=== PATIENT | female | born 1960 | race Caucasian/White ===

== ENCOUNTER 2024-07-11 23:38 | Emergency (ER) | payer MEDICARE, MEDICAID ==
[~2024-07-11] VITALS: Ht 165.1 cm; Wt 75.0 kg
[2024-07-12 00:19] VITALS: O2SAT 99
[2024-07-12] MEDS: ACETAMINOPHEN 325MG TABLET PO ONE (01:28)
[2024-07-12] MEDS ORDERED: T3 PO (01:34)
[2024-07-12 02:37] VITALS: BP 130/79; PULSE 64; RESP 20; TEMP 37.05852; O2SAT 99
== END 2024-07-12 02:38 | disposition home or self-care (01) ==
LOC: ER 23:57
DX: S42.034A Nondisplaced fracture of lateral end of right clavicle, initial encounter for closed fracture (principal); S70.02XA Contusion of left hip, initial encounter; I11.9 Hypertensive heart disease without heart failure; W01.0XXA Fall on same level from slipping, tripping and stumbling without subsequent striking against object, initial encounter; Y93.89 Activity, other specified; Y92.89 Other specified places as the place of occurrence of the external cause; Y99.8 Other external cause status
CPT/HCPCS: 29105; 73030; 73502; 99284; A4565